=== PATIENT | female | born 1950 | race Caucasian/White ===

== ENCOUNTER 2016-12-06 12:32 | Emergency (ER) | payer MEDICARE, MEDICAID ==
[~2016-12-06] VITALS: Ht 162.6 cm; Wt 52.2 kg
[2016-12-06 12:46] VITALS: BP 129/68
--- NOTE | 2016-12-06 12:46 | NUR ---
PRESENTS SELF TO ED DT GENERALIZED BODY PAIN X 4 DAYS S/P FALL ON MONDAY. PT IS AAO4, APPEARS IN NO APPRENT DISTRESS, RESPIRATION EVEN AND UNLABORED. VSS. AMBULATORY
[2016-12-06] MEDS ORDERED: KETOROLAC TROMETHAMINE INJ 30 MG/ML VIAL ONE (12:59)
[2016-12-06] MEDS ORDERED: KETOROLAC TROMETHAMINE INJ 60 MG/2 ML VIAL IM ONE (13:00)
== END 2016-12-06 13:22 | disposition home or self-care (01) ==
LOC: ER 12:33
DX: M54.5 Low back pain (principal); M79.662 Pain in left lower leg; F10.10 Alcohol abuse, uncomplicated; G62.9 Polyneuropathy, unspecified; E03.9 Hypothyroidism, unspecified; Z88.2 Allergy status to sulfonamides; W18.39XA Other fall on same level, initial encounter; Y93.89 Activity, other specified; Y92.89 Other specified places as the place of occurrence of the external cause; Y99.8 Other external cause status
CPT/HCPCS: 96372; 99283; A4606; J1885; Z7610

== ENCOUNTER 2017-02-26 14:19 | Emergency (ER) | payer MEDICARE, MEDICAID ==
[~2017-02-26] VITALS: Ht 165.1 cm; Wt 68.0 kg
--- NOTE | 2017-02-26 14:40 | NUR ---
BIB RA C/O FEELING ANXIOUS S/P DRINKING ALCOHOL. PT IS AAO4. APPEARS IN NO APPARENT DISTRESS. RESPIRATION EVEN AND UNLABORED. VSS
[2017-02-26] MEDS ORDERED: MVI ADULT 10ML VIAL = 1AMP 10 ML in IV NS 0.9% 1,000 ML IV ONE (15:00)
[2017-02-26] MEDS ORDERED: Thiamine 100 MG in IV D5W 50 ML IV SCH (15:00)
[2017-02-26] MEDS ORDERED: IV NS 0.9% 1,000 ML BAG IV ONE (15:00)
[2017-02-26] MEDS ORDERED: Folic acid 1 MG in IV D5W 50 ML IV SCH (15:00)
[2017-02-26 15:08] LABS: EOSINOPHILS # (AUTO) 0.1 /CMM (0.0-0.7); EOSINOPHILS % (AUTO) 4.2 % (0.0-6.0); HEMATOCRIT 38 % (33-45); HEMOGLOBIN 12.9 g/dL (11.5-14.8); LYMPHOCYTES # (AUTO) 1.5 /CMM (0.8-4.8); MEAN CORPUSCULAR HEMOGLOBIN 38 PG (26.0-33.0); MEAN CORPUSCULAR HGB CONC 34 g/dl (31.0-36.0); MEAN CORPUSCULAR VOLUME 109 fL (82-100); MONOCYTES # (AUTO) 0.4 /CMM (0.1-1.30); MONOCYTES % (AUTO) 13.1 % (2.0-12.0); NEUTROPHILS # (AUTO) 0.8 /CMM (1.8-8.9); NEUTROPHILS % (AUTO) 29.7 % (43.0-81.0); PLATELET COUNT (AUTO) 162 /CMM (150-450); RDW COEFFICIENT OF VARIATION 19.5 (11.5-15.0); RED BLOOD CELL COUNT(AUTO) 3.46 MIL/uL (4.0-5.2); WHITE BLOOD COUNT (AUTO) 2.9 K/uL (4.3-11.0)
[2017-02-26] MEDS ORDERED: Thiamine 100 MG/ML VIAL ONE (15:16)
[2017-02-26] MEDS ORDERED: Folic acid 1 MG/0.2 ML VIAL ONE (15:16)
[2017-02-26] MEDS ORDERED: MVI-12 10ML IV ONE (15:17)
[2017-02-26 15:26] LABS: APPEARANCE,URINE CLEAR (CLEAR); BILIRUBIN,URINE NEGATIVE (NEGATIVE); BLOOD, URINE NEGATIVE Ery/uL (NEGATIVE); COLOR,URINE YELLOW (YELLOW); KETONES,URINE NEGATIVE (NEGATIVE); LEUKOCYTE ESTERASE ,URINE NEGATIVE (NEGATIVE); NITRITE, URINE NEGATIVE (NEGATIVE); PH,URINE 5.5 (5.0-8.0); PROTEIN,URINE NEGATIVE (NEGATIVE); UGLUCOSE NEGATIVE (NEGATIVE); UROBILINOGEN,URINE 0.2 EU/dL (0.2)
[2017-02-26 15:27] LABS: CALCIUM, SERUM 8.3 mg/dL (8.5-10.1); CREATININE 0.6 mg/dL (0.6-1.3); POTASSIUM 3.3 mmol/L (3.5-5.1)
[2017-02-26 15:34] LABS: ALBUMIN 3.6 g/dL (3.4-5.0); BILIRUBIN,DIRECT 0.1 mg/dL (0.0-0.2); BILIRUBIN,TOTAL 0.5 mg/dL (0.2-1.0); TOTAL PROTEIN, SERUM 7.1 g/dL (6.4-8.2)
[2017-02-26 15:38] LABS: SALICYLATE 0.8 mg/dL (2.8-20.0)
[2017-02-26 15:56] VITALS: BP 140/70
--- NOTE | 2017-02-26 15:56 | NUR ---
Patient refused to complete further Iv infusion, Md Dumont made aware.
--- NOTE | 2017-02-26 15:57 | NUR ---
Patient discharged to home in stable condition. Written and verbal after care instructions given. Patient verbalizes understanding of instruction.IV removed. Catheter intact and site benign. Pressure and 4x4 applied to site. No bleeding noted.
[2017-02-26 16:33] LABS: BAND % (MANUAL) 2 % (0.0-5.0); EOSINOPHILS % (MANUAL) 1 % (0-4); LYMPHOCYTES % (MANUAL) 45 % (16-48); MONOCYTES % (MANUAL) 6 % (0-11.0); NEUTROPHILS % (MANUAL) 42 (42-76); REACTIVE LYMPHOCYTES 4 % (0-0)
== END 2017-02-26 15:58 | disposition home or self-care (01) ==
LOC: ER 14:20
DX: F10.129 Alcohol abuse with intoxication, unspecified (principal); G62.9 Polyneuropathy, unspecified; E03.9 Hypothyroidism, unspecified; Z88.2 Allergy status to sulfonamides
CPT/HCPCS: 36415; 80048-TC; 80076-TC; 80305; 81000-TC; 85025-TC; A4606; G0480; J3411; J3490; J7030; J7060; Z7610

== ENCOUNTER 2017-04-11 10:04 | Emergency (ER) | payer MEDICARE, MEDICAID ==
[~2017-04-11] VITALS: Ht 162.6 cm; Wt 49.9 kg
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
--- NOTE | 2017-04-11 10:59 | NUR ---
PT TAKEN TO CT SCAN
--- NOTE | 2017-04-11 11:48 | NUR ---
CALLED [employer] CLERK TO PROVIDE PATIENT RESOURCES AND INFORMATION.
--- NOTE | 2017-04-11 12:04 | NUR ---
Patient discharged to home in stable condition. Written and verbal after care instructions given. Patient verbalizes understanding of instruction.
[2017-04-11 12:08] VITALS: BP 130/85
== END 2017-04-11 12:09 | disposition home or self-care (01) ==
LOC: ER 10:09
DX: S02.2XXA Fracture of nasal bones, initial encounter for closed fracture (principal); S00.83XA Contusion of other part of head, initial encounter; G62.9 Polyneuropathy, unspecified; F32.9 Major depressive disorder, single episode, unspecified; F10.10 Alcohol abuse, uncomplicated; Z88.2 Allergy status to sulfonamides; W01.0XXA Fall on same level from slipping, tripping and stumbling without subsequent striking against object, initial encounter; Y92.89 Other specified places as the place of occurrence of the external cause; Y93.89 Activity, other specified; Y99.8 Other external cause status
CPT/HCPCS: 70450-TC; 70486-TC; A4606; Z7610

== ENCOUNTER 2017-05-25 12:03 | Emergency (ER) | payer MEDICARE, MEDICAID ==
[~2017-05-25] VITALS: Ht 170.2 cm; Wt 65.8 kg
[2017-05-25 12:07] VITALS: BP 136/78
== END 2017-05-25 13:33 | disposition home or self-care (01) ==
LOC: ER 12:07
DX: S00.83XA Contusion of other part of head, initial encounter (principal); M25.561 Pain in right knee; R51 Headache; F32.9 Major depressive disorder, single episode, unspecified; F10.10 Alcohol abuse, uncomplicated; G62.9 Polyneuropathy, unspecified; E03.9 Hypothyroidism, unspecified; Z88.2 Allergy status to sulfonamides; W18.39XA Other fall on same level, initial encounter; Y93.89 Activity, other specified; Y92.89 Other specified places as the place of occurrence of the external cause; Y99.8 Other external cause status
CPT/HCPCS: 70450-TC; 73564-TC; A4606; Z7610

== ENCOUNTER → 2017-05-25 | Emergency (ER) | payer MEDICARE, MEDICAID ==
[~2017-05-25] VITALS: Ht 162.6 cm; Wt 52.2 kg
[~2017-05-25] MED LIST: LEVO88TA5 PO; ZOLP5TAB2 PO
[2017-05-25 16:53] VITALS: BP 126/81
--- NOTE | 2017-05-25 18:09 | NUR ---
CALLED PT IN WAITING ROOM NO ANSWER
--- NOTE | 2017-05-25 19:11 | NUR ---
Patient left without being seen by ER Physician
--- NOTE | 2017-05-25 19:20 | NUR ---
UNABLE TO DEPART SECONDARY TO TECHNICAL ISSUE WILL ADVANCED STATUS
== END | disposition left against medical advice (07) ==
LOC: ER 16:53
DX: Z53.21 Procedure and treatment not carried out due to patient leaving prior to being seen by health care provider (principal)
CPT/HCPCS: A4606; Z7610

== ENCOUNTER 2017-05-29 11:18 | Inpatient (IN) | payer MEDICARE, MEDICAID ==
[~2017-05-29] VITALS: Ht 162.6 cm; Wt 51.3 kg
--- NOTE | 2017-05-29 11:18 | NUR ---
[id number], pt is asking help to be placed in a sober living facility after she was evicted from her apartment today, nad noted, vss, pt put on hospital md munira at , called sw. pravin
[2017-05-29 11:51] LABS: BASOPHILS # (AUTO) 0.1 /CMM (0.0-0.2); BASOPHILS % (AUTO) 1.1 % (0.0-2.0); EOSINOPHILS # (AUTO) 0.1 /CMM (0.0-0.7); EOSINOPHILS % (AUTO) 1.4 % (0.0-6.0); HEMATOCRIT 49 % (33-45); HEMOGLOBIN 16.4 g/dL (11.5-14.8); LYMPHOCYTES # (AUTO) 2.2 /CMM (0.8-4.8); MEAN CORPUSCULAR HEMOGLOBIN 33 PG (26.0-33.0); MEAN CORPUSCULAR HGB CONC 34 g/dl (31.0-36.0); MEAN CORPUSCULAR VOLUME 97 fL (82-100); MONOCYTES # (AUTO) 0.3 /CMM (0.1-1.30); MONOCYTES % (AUTO) 6.3 % (2.0-12.0); NEUTROPHILS # (AUTO) 2.3 /CMM (1.8-8.9); NEUTROPHILS % (AUTO) 47.2 % (43.0-81.0); PLATELET COUNT (AUTO) 235 /CMM (150-450); RDW COEFFICIENT OF VARIATION 13.5 (11.5-15.0)
--- NOTE | 2017-05-29 11:51 | NUR ---
nickolas costello, at bs.
--- NOTE | 2017-05-29 12:00 | NUR ---
KAY received a call from DAMIAN Longoria requesting for SW to see pt. regarding placement. Pt. is a 66 year old female who was admitted to [facility] for behaviors and alcohol intoxication. Pt. was found with a bottle of vodka in her belongings which was confiscated in the ED. SW met with pt. bedside. Pt. is alert and oriented x 2. Pt. speech was slurred at times. Pt. stated she was evicted from her apartment and wants to be placed. beverage manager Ollie was present as well and pt. would like skilled rehab placement. No other social service needs are requested at this time. SW is available, if needed.
[2017-05-29 12:02] LABS: CALCIUM, SERUM 9.3 mg/dL (8.5-10.1); CREATININE 0.6 mg/dL (0.6-1.3); POTASSIUM 3.7 mmol/L (3.5-5.1)
[2017-05-29 12:09] LABS: ALBUMIN 3.9 g/dL (3.4-5.0); BILIRUBIN,DIRECT 0.1 mg/dL (0.0-0.2); BILIRUBIN,TOTAL 0.8 mg/dL (0.2-1.0); TOTAL PROTEIN, SERUM 7.8 g/dL (6.4-8.2)
--- NOTE | 2017-05-29 12:40 | NUR ---
CALLED DR KEVIN LIMON ON THE PHONE WITH DR COTTON.
[2017-05-29] MEDS ORDERED: ZOLP5TAB2 PO (12:54)
[2017-05-29] MEDS ORDERED: LEVO88TA5 PO (12:54)
[2017-05-29] MEDS ORDERED: IV NS 0.9% 1,000 ML IV PRN (13:02)
--- NOTE | 2017-05-29 13:04 | NUR ---
PT IS GOING TO ROOM 110
--- NOTE | 2017-05-29 13:19 | NUR ---
PT UNABLE TO PROVIDE URINE SAMPLE, WILL TRY IN 20 MINUTES
[2017-05-29] MEDS ORDERED: MAG HYDROX/AL HYDROX/SIMETH 30 ML UDC PO PRN (13:30)
[2017-05-29] MEDS ORDERED: ACETAMINOPHEN 325 MG TABLET PO PRN (13:30)
[2017-05-29] MEDS ORDERED: MAGNESIUM HYDROXIDE 30 ML UDC PO PRN (13:30)
[2017-05-29] MEDS ORDERED: Z GUARD REMEDY 2 OZ OINT TP PRN (13:30)
--- NOTE | 2017-05-29 13:30 | NUR ---
called rowena to give report, rn not available to take report will call back in 5 mins
[2017-05-29 14:00] VITALS: BP 135/77
--- NOTE | 2017-05-29 14:11 | NUR ---
RN NOTES RECEIVED PT FROM ER, PT IS EXTREMELY INTOXICATED, A&0X2 ON ROOM AIR NO SOB OR DISTRESS NOTED. PT CAME WITH MANY LUGGAGE AND BELONGS WITH HER, PT REFUSED TO LET US OPEN THEM, PICTURE PLACED IN CHART. 20G IV SITE DRY AND INTACT. PT CRYING. BED LOCKED AND IN LOWEST POSITION CALL LIGHT WITHIN REACH, WILL CONT TO MONITOR.
[2017-05-29 14:50] VITALS: BP 135/77
--- NOTE | 2017-05-29 15:00 | NUR ---
RN NOTES PT IS CRYING, REQUESTING TO CALL , CLEARLY INTOXICATED, SLURRING WORDS. DENIES ANY SUICIDAL THOUGHTS OR PLANS.
[2017-05-29] MEDS: HYDROCODONE/APAP 5/325MG 1 EACH TABLET PO PRN ×2 (15:44→21:04)
[2017-05-29] MEDS: ENOXAPARIN SODIUM 40 MG/0.4 ML DISP.SYRIN SQ SCH (15:45)
[2017-05-29 16:00] VITALS: BP 117/70
[2017-05-29] MEDS: DOCUSATE SODIUM 100 MG CAPSULE PO SCH (17:23)
[2017-05-29] MEDS: LORAZEPAM 1 MG TABLET PO PRN (17:23)
--- NOTE | 2017-05-29 18:41 | NUR ---
RN NOTES PT REMAINED IN STABLE CONDITION THROUGHOUT THE SHIFT, PT GIVEN PAIN MEDICATION AND ATIVAN, CONTINUES TO COMPLAIN. DR COTTON AWARE. NO SIGNIFICANT CHANGES THROUGHOUT THE SHIFT. BED LOCKED AND IN LOWEST POSITION, CALL LIGHT WITHIN REACH, SIDE RAILS UPX3, WILL ENDORSE TO ONCOMING SHIFT.
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
[2017-05-29] MEDS: LORAZEPAM INJ 2 MG/ML VIAL IV PRN (19:55)
[2017-05-29 20:00] VITALS: BP 122/74
[2017-05-29] MEDS: ZOLPIDEM TARTRATE 5 MG TABLET PO PRN (21:01)
[2017-05-30 04:00] VITALS: BP 137/66
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
[2017-05-30] MEDS: HYDROCODONE/APAP 5/325MG 1 EACH TABLET PO PRN (05:20)
[2017-05-30] MEDS: ONDANSETRON HCL/PF 4 MG/2 ML VIAL IVP PRN (05:28)
[2017-05-30] MEDS: LORAZEPAM INJ 2 MG/ML VIAL IV PRN ×4 (05:28→20:31)
[2017-05-30 06:32] LABS: BASOPHILS % (AUTO) 0.9 % (0.0-2.0); EOSINOPHILS # (AUTO) 0.1 /CMM (0.0-0.7); EOSINOPHILS % (AUTO) 1.8 % (0.0-6.0); HEMATOCRIT 39 % (33-45); HEMOGLOBIN 13.8 g/dL (11.5-14.8); LYMPHOCYTES % (AUTO) 37.8 % (20.0-44.0); MEAN CORPUSCULAR HEMOGLOBIN 35 PG (26.0-33.0); MEAN CORPUSCULAR HGB CONC 35 g/dl (31.0-36.0); MEAN CORPUSCULAR VOLUME 98 fL (82-100); MONOCYTES # (AUTO) 0.4 /CMM (0.1-1.30); MONOCYTES % (AUTO) 6.7 % (2.0-12.0); NEUTROPHILS # (AUTO) 2.8 /CMM (1.8-8.9); NEUTROPHILS % (AUTO) 52.8 % (43.0-81.0); PLATELET COUNT (AUTO) 156 /CMM (150-450); RDW COEFFICIENT OF VARIATION 14.2 (11.5-15.0); RED BLOOD CELL COUNT(AUTO) 3.96 MIL/uL (4.0-5.2); WHITE BLOOD COUNT (AUTO) 5.4 K/uL (4.3-11.0)
[2017-05-30 07:06] LABS: ALBUMIN 3.4 g/dL (3.4-5.0); BILIRUBIN,DIRECT 0.1 mg/dL (0.0-0.2); BILIRUBIN,TOTAL 0.6 mg/dL (0.2-1.0); CALCIUM, SERUM 8.8 mg/dL (8.5-10.1); CREATININE 0.7 mg/dL (0.6-1.3); PHOSPHORUS 4.4 mg/dL (2.5-4.9); POTASSIUM 3.3 mmol/L (3.5-5.1); TOTAL PROTEIN, SERUM 6.7 g/dL (6.4-8.2)
[2017-05-30 07:07] LABS: THYROID STIMULATING HORMONE 1.486 uIU/mL (0.358-3.74)
[2017-05-30 07:36] LABS: MAGNESIUM 1.1 mg/dL (1.8-2.4)
--- NOTE | 2017-05-30 07:45 | NUR ---
CALLED DR. COTTON REGARDING PT MAG LEVEL 1.1. AWAITING CALL BACK.
[2017-05-30 08:00] VITALS: BP 123/72
--- NOTE | 2017-05-30 08:20 | NUR ---
CALLED DR. COTTON AGAIN REGARDING MAG 1.1. AWAITING CALL BACK.
[2017-05-30] MEDS: FOLIC ACID 1 MG TABLET PO SCH (08:30)
[2017-05-30] MEDS: MULTIVITAMINS,THERAGRAN 1 UDTAB TABLET PO SCH (08:30)
[2017-05-30] MEDS: THIAMINE HCL 100 MG TABLET PO SCH (08:30)
[2017-05-30] MEDS: LEVOTHYROXINE SODIUM 88 MCG TABLET PO SCH (08:31)
[2017-05-30] MEDS: PANTOPRAZOLE 40 MG VIAL IV SCH (08:33)
[2017-05-30] MEDS: DOCUSATE SODIUM 100 MG CAPSULE PO SCH ×2 (08:33→16:59)
[2017-05-30] MEDS: ENOXAPARIN SODIUM 40 MG/0.4 ML DISP.SYRIN SQ SCH (08:38)
[2017-05-30] MEDS: Magnesium 1GM/D5W 100ML PREMIX 100 ML IV SCH ×2 (09:34→11:12)
[2017-05-30] MEDS ORDERED: POTASSIUM CHLORIDE 20 MEQ TAB.PRT.SR PO SCH (10:00)
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
[2017-05-30 16:00] VITALS: BP 128/76
--- NOTE | 2017-05-30 19:19 | NUR ---
RN CLOSING NOTE PT @ BEDSIDE CLEAN AND COMFORTABLE. NO PAIN WITH PERIODS OF ANXIETY. DID NOT RECEIVED CALL FROM DR. COTTON FROM AM. MAG REPLACED X2. PT AT THIS TIME WOULD LIKE A BREAK FROM IV FLUIDS AND REFUSED @ THIS TIME. DUE TO FREQUENT TRIPS TO RESTROOM. PT STABLE THROUGHOUT SHIFT.
--- NOTE | 2017-05-30 19:30 | NUR ---
RN OPENING NOTES: RECEIVED PATIENT ON BED AWAKE AND ALERT X4, ON ROOM AIR,NOT IN APPARENT DISTRESS. IV ACCESS ON R AC G20, REFUSING IV FLUIDS. NO COMPLAINTS OF PAIN. ALTHOUGH PATIENT ALREADY ASKING ABOUT ANTI ANXIETY MEDICATION. SAFETY MEASURES ENSURED. CALL LIGHT WITHIN REACH. SAFETY MEASURES ENSURED. CONTINUOUSLY MONITORED.
[2017-05-30 20:00] VITALS: BP 124/78
[2017-05-30] MEDS: ZOLPIDEM TARTRATE 5 MG TABLET PO PRN (22:46)
[2017-05-30] MEDS: MAGNESIUM OXIDE 400 MG TABLET PO SCH (22:46)
[2017-05-31] MEDS: LORAZEPAM 1 MG TABLET PO PRN ×3 (01:33→18:09)
[2017-05-31 04:00] VITALS: BP_SYST 134; BP_DIAS 82; BP_DIAS 87
[2017-05-31] MEDS: LORAZEPAM INJ 2 MG/ML VIAL IV PRN ×3 (05:58→15:45)
[2017-05-31] MEDS: ONDANSETRON HCL/PF 4 MG/2 ML VIAL IVP PRN (06:06)
[2017-05-31] MEDS: LEVOTHYROXINE SODIUM 88 MCG TABLET PO SCH (06:30)
--- NOTE | 2017-05-31 07:12 | NUR ---
RN CLOSING NOTES: PATIENT REMAINED IN ROOM, NOT IN APPARENT DISTRESS. WITH OCCASIONAL BOUTS OF ANXIETY, PRN ATIVAN GIVEN. SAFETY MEASURES ENSURED AT ALL TIMES. PATIENT LOOKING FORWARD TO SPEAK WITH SOCIAL WORKERS TODAY. ENDORSED TO AM SHIFT RN.
[2017-05-31 08:00] VITALS: BP 146/80
[2017-05-31] MEDS: PANTOPRAZOLE 40 MG VIAL IV SCH (08:18)
[2017-05-31] MEDS: THIAMINE HCL 100 MG TABLET PO SCH (08:19)
[2017-05-31] MEDS: MULTIVITAMINS,THERAGRAN 1 UDTAB TABLET PO SCH (08:19)
[2017-05-31] MEDS: FOLIC ACID 1 MG TABLET PO SCH (08:19)
[2017-05-31] MEDS: ENOXAPARIN SODIUM 40 MG/0.4 ML DISP.SYRIN SQ SCH (08:29)
[2017-05-31] MEDS: DOCUSATE SODIUM 100 MG CAPSULE PO SCH ×2 (09:00→16:36)
[2017-05-31 12:32] LABS: CREATININE 0.9 mg/dL (0.6-1.3); MAGNESIUM 1.8 mg/dL (1.8-2.4); POTASSIUM 3.9 mmol/L (3.5-5.1)
--- NOTE | 2017-05-31 13:00 | NUR ---
RN NOTE SPOKE TO DR. COBB REPORTED PT WOULD LIKE PATIO AND SHOWER PRIVILEGES. HELPS PT WITH BOUTS OF ANXIETY AND DEPRESSION. AGREED TO ORDER.
[2017-05-31 16:00] VITALS: BP 134/91
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
[2017-05-31 20:00] VITALS: BP 136/79
--- NOTE | 2017-05-31 20:00 | NUR ---
RN NOTES RECEIVED PATIENT AWAKE, SORTING STUFF ON THE FLOOR. ALERT AND ORIENTED. NO COMPLAINT OF PAIN. NO DISTRESS NOTED. BREATHING EVEN AND UNLABORED. VITAL SIGNS WNL. STILL REFUSES IV ACCESS. WILL CONTINUE TO MONITOR.
[2017-05-31] MEDS: MAGNESIUM OXIDE 400 MG TABLET PO SCH (21:04)
[2017-05-31] MEDS: ZOLPIDEM TARTRATE 5 MG TABLET PO PRN (22:45)
[2017-06-01 04:00] VITALS: BP 129/74
[2017-06-01] MEDS: LEVOTHYROXINE SODIUM 88 MCG TABLET PO SCH (06:30)
--- NOTE | 2017-06-01 07:19 | NUR ---
RN CLOSING NOTES NO DISTRESS NOTED, BREATHING EVEN AND UNLABORED. NO COMPLAINT OF PAIN OR DISCOMFORT. WAITING FOR DISCHARGE ORDER. WILL ENDORSE TO AM SHIFT FOR CONTINUITY OF CARE
--- NOTE | 2017-06-01 08:00 | NUR ---
Patient went home AMA.Pt. able to walk and in stable condition.all belongings with patient.
== END 2017-06-01 09:30 | disposition left against medical advice (07) | DRG 894 ==
LOC: ER 11:20 → MEDSG1 13:18
PROVIDERS: ADMIT Internal Medicine; ATTEND Internal Medicine
DX: F10.239 Alcohol dependence with withdrawal, unspecified (principal); K70.10 Alcoholic hepatitis without ascites; E83.42 Hypomagnesemia; F10.229 Alcohol dependence with intoxication, unspecified; E03.9 Hypothyroidism, unspecified; E86.0 Dehydration; E87.6 Hypokalemia; Z88.2 Allergy status to sulfonamides; F17.210 Nicotine dependence, cigarettes, uncomplicated; S00.83XA Contusion of other part of head, initial encounter; X58.XXXA Exposure to other specified factors, initial encounter; Y93.9 Activity, unspecified; Y92.009 Unspecified place in unspecified non-institutional (private) residence as the place of occurrence of the external cause; T51.0X1A Toxic effect of ethanol, accidental (unintentional), initial encounter; Y90.8 Blood alcohol level of 240 mg/100 ml or more; Z59.0 Homelessness
CPT/HCPCS: 36415; 80048-TC; 80076-TC; 83735-TC; 84100-TC; 84443-TC; 85025-TC; 87081-TC; A4606; A6402; C9113; G0480; J1650; J2060; J2405; J3475; J7030; Z7610

== ENCOUNTER 2017-06-02 07:14 | Emergency (ER) | payer MEDICARE, MEDICAID ==
[~2017-06-02] VITALS: Ht 162.6 cm; Wt 52.2 kg
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
--- NOTE | 2017-06-02 08:36 | NUR ---
PATIENT CONSTANTLY YELLING, INCONSOLABLE AT THIS TIME. DENIES ANY MEDICAL ISSUES AT THIS TIME. STATING "I JUST WANT MY TO RESPOND TO ME."
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
[2017-06-02 08:55] VITALS: BP 122/78
--- NOTE | 2017-06-02 08:58 | NUR ---
Patient discharged to home in stable condition. Written and verbal after care instructions given. Patient verbalizes understanding of instruction.
== END 2017-06-02 08:57 | disposition home or self-care (01) ==
LOC: ER 07:16
DX: F10.10 Alcohol abuse, uncomplicated (principal); S02.2XXA Fracture of nasal bones, initial encounter for closed fracture; S00.83XA Contusion of other part of head, initial encounter; F32.9 Major depressive disorder, single episode, unspecified; G62.9 Polyneuropathy, unspecified; E03.9 Hypothyroidism, unspecified; Z88.2 Allergy status to sulfonamides; Z59.0 Homelessness; Y04.0XXA Assault by unarmed brawl or fight, initial encounter; Y93.89 Activity, other specified; Y92.410 Unspecified street and highway as the place of occurrence of the external cause; Y99.8 Other external cause status
CPT/HCPCS: 99283; A4606; Z7610

== ENCOUNTER 2017-06-02 17:41 | Emergency (ER) | payer MEDICARE, MEDICAID ==
--- NOTE | 2017-06-02 18:30 | NUR ---
PT NOT IN WAITING ROOM
--- NOTE | 2017-06-02 19:00 | NUR ---
NO AVAILABLE BED AT THIS TIME. PT YELLING SCREAMING AT WAITING ROOM . STABLE AT THIS TIME
--- NOTE | 2017-06-02 19:19 | NUR ---
CALLED IN WAITING ROOM NO ANSWER
[2017-06-02] MEDS ORDERED: diphenhydrAMINE HCL 50 MG/ML VIAL IM ONE (19:30)
[2017-06-02] MEDS ORDERED: HALOPERIDOL LACTATE INJ 5 MG/ML VIAL IM ONE ×2 (19:30→21:30)
[2017-06-02] MEDS ORDERED: LORAZEPAM INJ 2 MG/ML VIAL IM ONE (19:30)
[2017-06-02] MEDS ORDERED: diphenhydrAMINE HCL 50 MG/ML VIAL ONE (19:32)
[2017-06-02] MEDS ORDERED: HALOPERIDOL LACTATE INJ 5 MG/ML VIAL ONE ×2 (19:32→21:17)
[2017-06-02] MEDS ORDERED: LORAZEPAM INJ 2 MG/ML VIAL ONE ×2 (19:33→21:17)
[2017-06-02 20:04] LABS: BASOPHILS % (AUTO) 0.7 % (0.0-2.0); EOSINOPHILS # (AUTO) 0.2 /CMM (0.0-0.7); EOSINOPHILS % (AUTO) 3.3 % (0.0-6.0); HEMATOCRIT 44 % (33-45); HEMOGLOBIN 14.7 g/dL (11.5-14.8); LYMPHOCYTES # (AUTO) 1.8 /CMM (0.8-4.8); LYMPHOCYTES % (AUTO) 38.8 % (20.0-44.0); MEAN CORPUSCULAR HEMOGLOBIN 32 PG (26.0-33.0); MEAN CORPUSCULAR HGB CONC 33 g/dl (31.0-36.0); MEAN CORPUSCULAR VOLUME 97 fL (82-100); MONOCYTES # (AUTO) 0.4 /CMM (0.1-1.30); MONOCYTES % (AUTO) 7.9 % (2.0-12.0); NEUTROPHILS # (AUTO) 2.2 /CMM (1.8-8.9); NEUTROPHILS % (AUTO) 49.3 % (43.0-81.0); PLATELET COUNT (AUTO) 182 /CMM (150-450); RDW COEFFICIENT OF VARIATION 14.2 (11.5-15.0); RED BLOOD CELL COUNT(AUTO) 4.56 MIL/uL (4.0-5.2); WHITE BLOOD COUNT (AUTO) 4.6 K/uL (4.3-11.0)
[2017-06-02 20:18] LABS: CALCIUM, SERUM 9.9 mg/dL (8.5-10.1); CARBON DIOXIDE 24 mmol/L (21-32); CHLORIDE 104 mmol/L (98-107); CREATININE 0.8 mg/dL (0.6-1.3); GLUCOSE 96 mg/dL (74-106); POTASSIUM 3.8 mmol/L (3.5-5.1); SODIUM SERUM 140 mmol/L (136-145); UREA NITROGEN, BLOOD 16 mg/dL (7-18)
--- NOTE | 2017-06-02 20:21 | NUR ---
PATIENT COMBATIVE, ER WILL CALL WHEN READY. [id number].
[2017-06-02 20:30] LABS: ALANINE AMINOTRANSFERASE 75 U/L (12-78); ALBUMIN 4.1 g/dL (3.4-5.0); ALCOHOL, BLOOD 373 mg/dL (0-0); ALKALINE PHOSPHATASE 111 U/L (46-116); ASPARTATE AMINOTRANSFERASE 86 U/L (15-37); BILIRUBIN,DIRECT 0.1 mg/dL (0.0-0.2); BILIRUBIN,TOTAL 0.6 mg/dL (0.2-1.0); TOTAL PROTEIN, SERUM 7.9 g/dL (6.4-8.2)
[2017-06-02 20:31] LABS: ACETAMINOPHEN < 2 ug/ml (10-30); SALICYLATE 1.2 mg/dL (2.8-20.0)
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
--- NOTE | 2017-06-02 21:22 | NUR ---
PT MEDICATED ORDERED
[2017-06-02] MEDS ORDERED: LORAZEPAM INJ 2 MG/ML VIAL IM/IV ONE (21:30)
--- NOTE | 2017-06-02 23:15 | NUR ---
PT RESTING IN GURNEY. NO SIGNS OF DISTRESS NOTED. PT VITAL SIGNS STABLE. PT EASILY AROUSABLE. WILL CONT TO MONITOR PT.
--- NOTE | 2017-06-03 05:02 | NUR ---
PT OK TO BE DISCHARGED PER DR BRENNAN. Patient discharged to home in stable condition. Written and verbal after care instructions given. Patient verbalizes understanding of instruction.Patient is awake and alert to self, day, and place. PT ambulatory with a steady gait
[2017-06-03 06:27] VITALS: BP 124/74
== END 2017-06-03 05:02 | disposition home or self-care (01) ==
LOC: ER 17:42
DX: S00.12XA Contusion of left eyelid and periocular area, initial encounter (principal); S00.11XA Contusion of right eyelid and periocular area, initial encounter; S60.222A Contusion of left hand, initial encounter; S60.221A Contusion of right hand, initial encounter; S80.12XA Contusion of left lower leg, initial encounter; S80.11XA Contusion of right lower leg, initial encounter; F10.129 Alcohol abuse with intoxication, unspecified; F32.9 Major depressive disorder, single episode, unspecified; E03.9 Hypothyroidism, unspecified; Z88.2 Allergy status to sulfonamides; Y08.89XA Assault by other specified means, initial encounter; Y93.9 Activity, unspecified; Y92.89 Other specified places as the place of occurrence of the external cause; Y99.8 Other external cause status
CPT/HCPCS: 36415; 80048; 80076; 80329; 85025; 96372 ×5; 99284; G0480 ×2; J1200; J1630 ×2; J2060 ×2; A4606; Z7610

== ENCOUNTER → 2017-06-03 | Emergency (ER) | payer MEDICARE, MEDICAID ==
[~2017-06-03] VITALS: Ht 165.1 cm; Wt 63.5 kg
[~2017-06-03] MED LIST changes: +LORAZEPAM 1 MG TABLET ONE
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
[2017-06-03] MEDS: LORAZEPAM 1 MG TABLET PO ONE (12:05)
--- NOTE | 2017-06-03 14:04 | NUR ---
PT AMBULATORY WITH STEADY GAIT
--- NOTE | 2017-06-03 14:30 | NUR ---
PT. VERBALIZED UNDERSTANDING OF AFTERCARE INSTRUCTIONS.Patient discharged to home in stable condition. Written and verbal after care instructions given. Patient verbalizes understanding of instruction.
[2017-06-03 15:05] VITALS: BP 142/71
== END | disposition home or self-care (01) ==
LOC: ER 11:46
DX: F10.10 Alcohol abuse, uncomplicated (principal); F32.9 Major depressive disorder, single episode, unspecified; G62.9 Polyneuropathy, unspecified; Z88.2 Allergy status to sulfonamides
CPT/HCPCS: A4606; Z7610

== ENCOUNTER 2018-03-07 20:52 | Emergency (ER) | payer MEDICARE, MEDICAID ==
[~2018-03-07] VITALS: Ht 160 cm; Wt 59.0 kg
[~2018-03-07 20:52] MED LIST changes: -LORAZEPAM 1 MG TABLET ONE
[2018-03-07 20:55] VITALS: BP 161/60
[2018-03-07] MEDS ORDERED: BACITRACIN ZINC OINT PACKET 1 EA PACKET TP ONE (22:00)
== END 2018-03-07 22:38 | disposition home or self-care (01) ==
LOC: ER 20:55
DX: S80.211A Abrasion, right knee, initial encounter (principal); S60.512A Abrasion of left hand, initial encounter; S60.511A Abrasion of right hand, initial encounter; S50.812A Abrasion of left forearm, initial encounter; F32.9 Major depressive disorder, single episode, unspecified; F10.10 Alcohol abuse, uncomplicated; E03.9 Hypothyroidism, unspecified; G62.9 Polyneuropathy, unspecified; Z88.2 Allergy status to sulfonamides; W01.0XXA Fall on same level from slipping, tripping and stumbling without subsequent striking against object, initial encounter; Y93.89 Activity, other specified; Y92.89 Other specified places as the place of occurrence of the external cause; Y99.8 Other external cause status
CPT/HCPCS: 99283; A4606; J7060; Z7610

== ENCOUNTER 2019-02-20 19:33 | Emergency (ER) | payer MEDICARE, MEDICAID ==
[~2019-02-20] VITALS: Ht 157.5 cm; Wt 54.4 kg
--- NOTE | 2019-02-20 19:47 | NUR ---
PT BIBSELF C/C "I THINK THERE IS SOMETHING WRONG", APPEARS ANXIOUS, C/O DIARRHEA FOR 2 WEEKS. PT WAS SOBER FOR 9 MO UNTIL RECENT RELAPSE ON ETOH. PT HAS HX OF ANXIETY. PT ON MONITOR IN BED 13. URINE SPECIMEN CUP PROVIDED. PT UNABLE TO URINATE AT THIS TIME. WILL CONTINUE TO MONITOR.
--- NOTE | 2019-02-20 19:49 | NUR ---
AT BEDSIDE FOR EVAL
[2019-02-20 20:08] VITALS: BP 143/105
--- NOTE | 2019-02-20 20:12 | NUR ---
PHLEB AT BEDSIDE FOR LAB DRAW
[2019-02-20 20:20] LABS: BASOPHILS # (AUTO) 0.1 /CMM (0.0-0.2); EOSINOPHILS % (AUTO) 1.6 % (0.0-6.0); HEMATOCRIT 43 % (33-45); LYMPHOCYTES # (AUTO) 2.6 /CMM (0.8-4.8); LYMPHOCYTES % (AUTO) 32.7 % (20.0-44.0); MEAN CORPUSCULAR HGB CONC 35 g/dl (31.0-36.0); MEAN CORPUSCULAR VOLUME 104 fL (82-100); MONOCYTES # (AUTO) 0.8 /CMM (0.1-1.30); MONOCYTES % (AUTO) 9.5 % (2.0-12.0); NEUTROPHILS # (AUTO) 4.4 /CMM (1.8-8.9); NEUTROPHILS % (AUTO) 55.2 % (43.0-81.0); PLATELET COUNT (AUTO) 251 /CMM (150-450); RED BLOOD CELL COUNT(AUTO) 4.14 MIL/uL (4.0-5.2); WHITE BLOOD COUNT (AUTO) 7.9 K/uL (4.3-11.0)
--- NOTE | 2019-02-20 20:25 | NUR ---
URINE COLLECTED AND SENT TO LAB
[2019-02-20 20:29] LABS: CALCIUM, SERUM 8.9 mg/dL (8.5-10.1); CREATININE 0.8 mg/dL (0.6-1.3); POTASSIUM 3.5 mmol/L (3.5-5.1)
[2019-02-20 20:36] LABS: ALBUMIN 3.8 g/dL (3.4-5.0); BILIRUBIN,DIRECT 0.2 mg/dL (0.0-0.2); BILIRUBIN,TOTAL 1.2 mg/dL (0.2-1.0); SALICYLATE 0.6 mg/dL (2.8-20.0); TOTAL PROTEIN, SERUM 7.6 g/dL (6.4-8.2)
[2019-02-20 20:40] LABS: APPEARANCE,URINE Slightly Cloudy (CLEAR); BILIRUBIN,URINE Negative (NEGATIVE); BLOOD, URINE Small Ery/uL (NEGATIVE); COLOR,URINE Yellow (YELLOW); KETONES,URINE Negative (NEGATIVE); LEUKOCYTE ESTERASE ,URINE Small (NEGATIVE); NITRITE, URINE Positive (NEGATIVE); PROTEIN,URINE Negative (NEGATIVE); UGLUCOSE Negative (NEGATIVE); UROBILINOGEN,URINE 0.2 EU/dL (0.2)
[2019-02-20 20:47] LABS: BACTERIA,URINE Moderate /HPF (None Seen); SQUAMOUS EPITHELIAL CELL,UR Few /HPF (None Seen)
--- NOTE | 2019-02-21 10:09 | NUR ---
SW was informed by GREEN END MAN Reuben that pt. was discharged from ED overnight and is needing placement. Pt. is homeless. SW met with pt. bedside. Per pt. she recently became homeless after getting a divorce. Pt. was in ED last night due to alcohol intoxication. Pt. is alert and oriented x 4.Pt. is ambulatory with a steady gait. SW called [facility] located at [address] [place] [address] in [place] and spoke with Nigel who informed SW they have a bottom bunk bed they can reserve for the pt. Pt. needs to get there by 2PM. SW informed pt. about the bed availability and printed out bus route [facility]. Pt. became upset and stated, "I am not going down there" and declined the [facility]. Pt. was then, escorted out with her belongings by security and given a TAP card.
== END 2019-02-20 22:09 | disposition home or self-care (01) ==
LOC: ER 19:36
DX: F10.20 Alcohol dependence, uncomplicated (principal); F32.9 Major depressive disorder, single episode, unspecified; F41.9 Anxiety disorder, unspecified; G62.9 Polyneuropathy, unspecified; E03.9 Hypothyroidism, unspecified; Z88.2 Allergy status to sulfonamides; Z79.899 Other long term (current) drug therapy; Y90.9 Presence of alcohol in blood, level not specified
CPT/HCPCS: 36415; 80048; 80076; 80305; 80307; 80329; 81001; 85025; 87077; 87086; 87186; 99283; G0480; 81000-TC